=== PATIENT | female | born 1935 | race Caucasian/White ===

== ENCOUNTER 2019-02-03 09:07 | Inpatient (IN) | payer MEDICARE ==
[~2019-02-03] VITALS: Ht 157.5 cm; Wt 57.2 kg
[2019-02-03] VITALS (25 sets, daily range): BP systolic 78–225; BP diastolic 28–95
[~2019-02-03 09:07] MED LIST: ALBU18HF2 IH; AMLO10TA PO; ASPI-529 PO; CLOP75TA35 PO; LORA1TAB PO; MULT-342 PO; PREVCR VG
[2019-02-03] MEDS ORDERED: heparin 1,000unit/ml 10ml vial 10 ML ONE ×2 (09:25→19:07)
[2019-02-03] MEDS ORDERED: iohexol 350MG/ML 100ml bottle IV ONE ×4 (09:25→21:24)
[2019-02-03] MEDS ORDERED: iohexol 350 MG/ML 50ML vial IV ONE (09:25)
[2019-02-03] MEDS ORDERED: fentaNYL/PF 50MCG/1 ML 2ML syringe ONE ×2 (09:25→19:55)
[2019-02-03] MEDS ORDERED: midazolam 2 mg/2 ml injection ONE ×3 (09:25→19:55)
[2019-02-03] MEDS ORDERED: LIDOcaine 1% (10mg/ml)w/preservative injection 20ml MDV ONE ×2 (09:35→19:07)
[2019-02-03 09:47] LABS: BASOPHILS # (AUTO) 0.1 X10'3 (0-0.2); BASOPHILS % (AUTO) 1.2 % (0-1); EOSINOPHILS # (AUTO) 0.3 X10'3 (0-0.9); EOSINOPHILS % (AUTO) 5.3 % (0-6); HEMATOCRIT 43.2 % (35.0-45.0); HEMOGLOBIN 14.9 g/dl (12.0-16.0); LYMPHOCYTES % (AUTO) 14.7 % (21-51); MEAN CORPUSCULAR HEMOGLOBIN 31.5 PG (27.0-31.0); MEAN CORPUSCULAR HGB CONC 34.6 g/dL (33.0-36.5); MEAN CORPUSCULAR VOLUME 91.1 FL (78-98); MEAN PLATELET VOLUME 6.8 FL (7.4-10.4); MONOCYTES # (AUTO) 0.5 X10'3 (0-0.9); NEUTROPHILS # (AUTO) 4.7 X10'3 (1.8-7.7); NEUTROPHILS % (AUTO) 70.8 % (42-75); PLATELET COUNT 225 X10'3 (140-440); RED BLOOD COUNT 4.74 X10'6 (4.20-5.60); RED CELL DISTRIBUTION WIDTH 13.2 % (11.5-14.5); WHITE BLOOD COUNT 6.6 X10'3 (4.5-11.0)
[2019-02-03] MEDS ORDERED: LISI40TA4 PO (09:57)
[2019-02-03] MEDS ORDERED: LISI30TA4 PO (09:58)
[2019-02-03] MEDS ORDERED: KRIL1CAP PO (09:59)
[2019-02-03] MEDS ORDERED: LACT1CAP73 PO (10:00)
[2019-02-03] MEDS ORDERED: MAGN400C PO (10:02)
[2019-02-03] MEDS ORDERED: LORA0.5T PO (10:03)
[2019-02-03] MEDS ORDERED: CHOL50004 PO (10:07)
[2019-02-03 10:08] LABS: ANION GAP 8 (8-16); BLOOD UREA NITROGEN 31 MG/DL (7-18); BUN/CREATININE RATIO 24.6 (6.6-38.0); CHLORIDE 102 MMOL/L (99-107); CREATININE 1.26 MG/DL (0.40-0.90); GLUCOSE 90 MG/DL (70-104); MAGNESIUM 2.1 MG/DL (1.5-2.4); SODIUM 138 MMOL/L (135-145); TOTAL CARBON DIOXIDE 28.3 MMOL/L (24-32); eGFR 41 ML/MIN
[2019-02-03] MEDS ORDERED: METO25TA6 PO (10:27)
[2019-02-03] MEDS ORDERED: proCHLORperazine 10 MG/2 ml inj ONE ×2 (10:46→19:55)
[2019-02-03] MEDS ORDERED: nitroGLYCERIN-Tridil 50MG/D5W 250 ML IV ONE ×2 (11:29→21:31)
[2019-02-03] MEDS ORDERED: clopidogrel 300mg tablet ONE (11:39)
[2019-02-03] MEDS ORDERED: ondansetron/PF 4mg/2ml inj ONE ×2 (12:29→17:04)
[2019-02-03] MEDS ORDERED: atropine 0.1mg/ml 10ml syringe ONE (13:46)
[2019-02-03] MEDS: normal saline 1000ml 1,000 ML IV SCH ×2 (14:07→14:09)
[2019-02-03] MEDS ORDERED: normal saline 1000ml 1,000 ML IV ONE (14:10)
[2019-02-03] MEDS ORDERED: hydrocortisone sod succ/PF 100mg/2ml inj. IV ONE (15:10)
[2019-02-03] MEDS ORDERED: glycopyrrolate 0.2mg/ml inj IV ONE (15:50)
--- NOTE | 2019-02-03 17:00 | NUR ---
Pt arrived to unit via gurney. Received report from RN from Short Stay. Applied tele monitor (mobile unit) and obtained vital signs. NS running at 200 mL/hr until bolus is finished. Gave call light to pt and oriented pt to room. Pt is alert and oriented X 4 and denies pain in her right leg. At this time, I can not palpate or auscultate pedal or posterior tibial pulse. RN from short Stay stated that Dr. Maciel is aware. I called Dr. Maciel on his cell at , several times, however, no answer. I then notified Dr. Castro of these findings. Will continue to try and reach Dr. Maciel and monitor pt closely.
[2019-02-03] MEDS ORDERED: LORazepam 0.5 MG tablet PO PRN (17:30)
[2019-02-03] MEDS ORDERED: zolpidem 5mg tablet PO PRN (17:45)
[2019-02-03] MEDS ORDERED: non-formulary drug (Albuterol Sulfate (Ventolin Hfa) 2 PUFFS) IH SCH (18:00)
--- NOTE | 2019-02-03 18:30 | NUR ---
I have made several attempts to call Dr. Maciel at [phone], however, no response. I left one message asking Dr. Maicel to return my call, but no success. Dr. Castro at bedside now evaluating pt. New order for arterial ultrasound. Will continue to monitor.
--- NOTE | 2019-02-03 18:40 | NUR ---
Problems reprioritized. Patient report given, questions answered & plan of care reviewed with Romelia PADRON.
[2019-02-03] MEDS ORDERED: heparin 1,000 UNITS/NS 500ml 500 ML ONE ×2 (19:08→19:49)
--- NOTE | 2019-02-03 19:42 | NUR ---
Patient in room PCU 3026. I have received report from Hawa PADRON and Brett PADRON and had the opportunity to ask questions and assume patient care.
[2019-02-03] MEDS ORDERED: diphenhydrAMINE 50 mg/ml inj ONE (19:55)
[2019-02-03] MEDS ORDERED: metoprolol tartrate 25mg tablet PO SCH (20:00)
[2019-02-03] MEDS ORDERED: non-formulary drug (Cholecalciferol (Vitamin D3) 5,000 UNIT) PO SCH (20:00)
[2019-02-03] MEDS ORDERED: hydrocortisone sod succ/PF 100mg/2ml inj. ONE (20:49)
[2019-02-03] MEDS ORDERED: non-formulary drug (Lisinopril* 1 TAB) PO SCH (21:00)
[2019-02-03] MEDS ORDERED: lisinopril 20mg tablet PO SCH (21:00)
[2019-02-03] MEDS: albuterol 2.5 MG/3 ML nebule NEB SCH ×2 (21:14→23:07)
--- NOTE | 2019-02-03 23:15 | NUR ---
Patient's left leg mottled, pulses undetectable and patient in pain (10/10). Contacted data processing consultant echocardiography radiology technologist (Dr. Castro). Orders given for Percocet 5/325 and recommendation to get a hold of Dr. Maciel.
[2019-02-03] MEDS ORDERED: oxyCODONE/APAP 5-325mg tablet PO PRN (23:20)
--- NOTE | 2019-02-03 23:30 | NUR ---
Got a hold of Dr. Maciel, he came to the floor to check on patient. Removed femoral stop and checked for pulses. Order given for Morphine 2mg IV. aware of low blood pressure.
[2019-02-03] MEDS ORDERED: morphine 2 MG/ML inj. syringe IV PRN (23:40)
[2019-02-04] VITALS (28 sets, daily range): BP systolic 85–173; BP diastolic 19–65
--- NOTE | 2019-02-04 02:00 | NUR ---
While assessing patient's low BP and her left leg, she vomited bile. Patient would respond to shaking but could not focus or follow commands. Called rapid response. New orders placed for CBC and BMP.
[2019-02-04] MEDS ORDERED: naloxone 0.4 mg/ml inj ONE (02:47)
[2019-02-04 03:08] LABS: BASOPHILS # (AUTO) 0.1 X10'3 (0-0.2); BASOPHILS % (AUTO) 0.3 % (0-1); EOSINOPHILS % (AUTO) 0.1 % (0-6); LYMPHOCYTES # (AUTO) 1.6 X10'3 (1.1-4.8); LYMPHOCYTES % (AUTO) 8.2 % (21-51); MEAN CORPUSCULAR HGB CONC 33.6 g/dL (33.0-36.5); MEAN CORPUSCULAR VOLUME 92.1 FL (78-98); MEAN PLATELET VOLUME 7.1 FL (7.4-10.4); MONOCYTES # (AUTO) 1.1 X10'3 (0-0.9); MONOCYTES % (AUTO) 5.5 % (2-12); NEUTROPHILS % (AUTO) 85.9 % (42-75); PLATELET COUNT 194 X10'3 (140-440); RED BLOOD COUNT 1.98 X10'6 (4.20-5.60); RED CELL DISTRIBUTION WIDTH 13.1 % (11.5-14.5); WHITE BLOOD COUNT 19.8 X10'3 (4.5-11.0)
[2019-02-04 03:18] LABS: HEMATOCRIT 18.2 % (35.0-45.0); HEMOGLOBIN 6.1 g/dl (12.0-16.0)
--- NOTE | 2019-02-04 04:00 | NUR ---
RN Note -Received report from tele
--- NOTE | 2019-02-04 04:00 | NUR ---
Called back to PCU at [phone] to reassess patient after patient vomited large amt and had possible seizure; upon arrival pt still sleepy but would open eyes and follow simple commands; pt denies pain but abd tender when palpated; bladder scanned for <100cc; str cath done w/minimal output; at some point pt incontinent large amt of urine; at bedside to assess patient; SBP remains in 90s; HR 86, sats good on RA; repeat H/h critical, awaiting processing of packed cells; pt to be transferred to ICU 2044; pt transferred in bed at 0
--- NOTE | 2019-02-04 04:00 | NUR ---
Two RN skin check with Leslie Casas
[2019-02-04] MEDS ORDERED: NORepinephrine 8mg/ 250ml NS 250 ML IV SCH (04:10)
--- NOTE | 2019-02-04 05:00 | NUR ---
RN Note -MD Communication Dr. Maciel at bedside. Orders received for Levo to keep SBP above 110. Bumex to be given between units of blood. BiPAP as needed if pt experiences respiratory distress.
[2019-02-04 05:17] LABS: ANION GAP 7 (8-16); BLOOD UREA NITROGEN 34 MG/DL (7-18); BUN/CREATININE RATIO 24.8 (6.6-38.0); CALCIUM 7.1 MG/DL (8.5-10.1); CHLORIDE 112 MMOL/L (99-107); CREATININE 1.37 MG/DL (0.40-0.90); GLUCOSE 151 MG/DL (70-104); POTASSIUM 4.5 MMOL/L (3.5-5.1); SODIUM 141 MMOL/L (135-145); TOTAL CARBON DIOXIDE 21.7 MMOL/L (24-32); eGFR 37 ML/MIN
--- NOTE | 2019-02-04 05:30 | NUR ---
Pt has episodes of tachypnea and pursed lip breathing and difficulty speaking. Appears to be anxiety related. Pt responds to reassurance and encouragement to breathe deep. Blood pressure is responding well to transfusion.
[2019-02-04] MEDS: normal saline 1000ml 1,000 ML IV SCH ×5 (05:35→21:34)
[2019-02-04] MEDS ORDERED: bumetanide 0.25mg/ml 4ml vial IV SCH (06:30)
--- NOTE | 2019-02-04 06:30 | NUR ---
Patient in room ICU 2044. I have received report from advertising traffic manager nurse Mac RN and had the opportunity to ask questions and assume patient care.
[2019-02-04] MEDS ORDERED: lisinopril 10 MG tablet PO SCH (08:00)
[2019-02-04] MEDS ORDERED: non-formulary drug (Lisinopril 1 TAB) PO SCH (08:00)
[2019-02-04] MEDS ORDERED: [UNRECOGNIZED DRUG - OTHER] PO SCH (08:00)
[2019-02-04] MEDS ORDERED: ASPIRIN 81 MG PO SCH (08:00)
[2019-02-04] MEDS ORDERED: non-formulary drug (Krill/Om3/Dha/Epa/Om6/Lip/Astx (Krill Oil 1,000 Mg Softgel) 1 EACH) PO SCH (08:00)
[2019-02-04] MEDS: estrogens, conjug. vaginal cream 45gm tube VG SCH (08:00)
[2019-02-04] MEDS ORDERED: non-formulary drug (Magnesium Oxide (Magnesium) 1 CAP) PO SCH (08:00)
--- NOTE | 2019-02-04 08:00 | NUR ---
feet cold, unable to find doppler pulses, warm blankets applied, reassessed and doppler pulses found as charted.
[2019-02-04] MEDS: albuterol 2.5 MG/3 ML nebule NEB SCH ×2 (08:20→11:05)
[2019-02-04] MEDS: aspirin 81mg tab.chew PO SCH (09:56)
[2019-02-04] MEDS: lactobacillus rhamnosus 10,000 MMU CELLS/CAPSULE PO SCH (09:56)
[2019-02-04] MEDS: clopidogrel 75mg tablet PO SCH (09:56)
[2019-02-04] MEDS: vitamin D (cholecalciferol) 1,000 unit tablet PO SCH ×2 (09:56→10:05)
[2019-02-04] MEDS: magnesium oxide 400mg tablet PO SCH (09:56)
--- NOTE | 2019-02-04 10:30 | NUR ---
Dr Maciel here at bedside, updated on patients status, new orders received.
[2019-02-04] MEDS ORDERED: hydrALAZINE 20mg/ml inj. IV PRN (11:45)
[2019-02-04] MEDS: acetaminophen 325mg tablet PO PRN (11:52)
[2019-02-04 13:14] LABS: BASOPHILS % (AUTO) 0.1 % (0-1); EOSINOPHILS % (AUTO) 0 % (0-6); HEMATOCRIT 31.1 % (35.0-45.0); HEMOGLOBIN 10.7 g/dl (12.0-16.0); LYMPHOCYTES # (AUTO) 1.1 X10'3 (1.1-4.8); LYMPHOCYTES % (AUTO) 4.6 % (21-51); MEAN CORPUSCULAR HEMOGLOBIN 28.2 PG (27.0-31.0); MEAN CORPUSCULAR HGB CONC 34.4 g/dL (33.0-36.5); MEAN CORPUSCULAR VOLUME 82.1 FL (78-98); MEAN PLATELET VOLUME 7.4 FL (7.4-10.4); MONOCYTES # (AUTO) 1.7 X10'3 (0-0.9); MONOCYTES % (AUTO) 6.8 % (2-12); NEUTROPHILS # (AUTO) 21.6 X10'3 (1.8-7.7); NEUTROPHILS % (AUTO) 88.5 % (42-75); PLATELET COUNT 132 X10'3 (140-440); RED BLOOD COUNT 3.79 X10'6 (4.20-5.60); RED CELL DISTRIBUTION WIDTH 19.4 % (11.5-14.5); WHITE BLOOD COUNT 24.5 X10'3 (4.5-11.0)
[2019-02-04 14:29] LABS: TOTAL CELLS COUNTED 100
[2019-02-04 14:31] LABS: ANISOCYTOSIS 2+; ELLIPTOCYTES FEW; PLATELET ESTIMATE DECREASED; POLYCHROMASIA FEW
[2019-02-04 14:32] LABS: ACANTHOCYTES FEW
[2019-02-04] MEDS: albuterol 2.5 MG/3 ML nebule NEB PRN (18:51)
[2019-02-05] VITALS (14 sets, daily range): BP systolic 116–212; BP diastolic 21–76
[2019-02-05] MEDS: acetaminophen 325mg tablet PO PRN (03:06)
[2019-02-05 03:12] LABS: BASOPHILS % (AUTO) 0.3 % (0-1); EOSINOPHILS # (AUTO) 0.1 X10'3 (0-0.9); EOSINOPHILS % (AUTO) 0.4 % (0-6); HEMATOCRIT 26.7 % (35.0-45.0); HEMOGLOBIN 9.2 g/dl (12.0-16.0); LYMPHOCYTES # (AUTO) 1.3 X10'3 (1.1-4.8); LYMPHOCYTES % (AUTO) 8.2 % (21-51); MEAN CORPUSCULAR HEMOGLOBIN 28.3 PG (27.0-31.0); MEAN CORPUSCULAR HGB CONC 34.5 g/dL (33.0-36.5); MEAN CORPUSCULAR VOLUME 82.1 FL (78-98); MEAN PLATELET VOLUME 7.3 FL (7.4-10.4); MONOCYTES # (AUTO) 1.4 X10'3 (0-0.9); MONOCYTES % (AUTO) 9.3 % (2-12); NEUTROPHILS # (AUTO) 12.8 X10'3 (1.8-7.7); NEUTROPHILS % (AUTO) 81.8 % (42-75); PLATELET COUNT 103 X10'3 (140-440); RED BLOOD COUNT 3.26 X10'6 (4.20-5.60); WHITE BLOOD COUNT 15.6 X10'3 (4.5-11.0)
[2019-02-05 03:19] LABS: ALANINE AMINOTRANSFERASE 28 U/L (12-78); ALBUMIN 2.4 G/DL (3.4-5.0); ALKALINE PHOSPHATASE 61 IU/L (46-116); ANION GAP 8 (8-16); ASPARTATE AMINO TRANSFERASE 33 U/L (10-37); BILIRUBIN,TOTAL 0.3 MG/DL (0.1-1.0); BLOOD UREA NITROGEN 37 MG/DL (7-18); CALCIUM 7.4 MG/DL (8.5-10.1); CHLORIDE 107 MMOL/L (99-107); CREATININE 1.48 MG/DL (0.40-0.90); GLUCOSE 123 MG/DL (70-104); MAGNESIUM 1.8 MG/DL (1.5-2.4); POTASSIUM 3.3 MMOL/L (3.5-5.1); SODIUM 137 MMOL/L (135-145); TOTAL PROTEIN 4.8 G/DL (6.4-8.2); eGFR 34 ML/MIN
--- NOTE | 2019-02-05 06:00 | NUR ---
RN Note -MD Communication Called Dr. Maciel regarding pt's blood pressure rising. Received order to restart home Lisinopril and Metoprolol.
[2019-02-05] MEDS ORDERED: potassium Cl 20 mEq SR tablet PO PRN (06:20)
--- NOTE | 2019-02-05 06:30 | NUR ---
Patient in room ICU 2044. I have received report from shift engineer and had the opportunity to ask questions and assume patient care.
[2019-02-05] MEDS: albuterol 2.5 MG/3 ML nebule NEB PRN (07:17)
[2019-02-05] MEDS ORDERED: lisinopril 10 MG tablet PO SCH (08:00)
[2019-02-05] MEDS ORDERED: metoprolol tartrate 50mg tablet PO SCH (08:00)
[2019-02-05] MEDS: estrogens, conjug. vaginal cream 45gm tube VG SCH (08:00)
[2019-02-05] MEDS ORDERED: K and/or MAG REPLACEMENT MC SCH (08:00)
[2019-02-05] MEDS: clopidogrel 75mg tablet PO SCH (08:32)
[2019-02-05] MEDS: magnesium oxide 400mg tablet PO SCH (08:32)
[2019-02-05] MEDS: lactobacillus rhamnosus 10,000 MMU CELLS/CAPSULE PO SCH (08:32)
[2019-02-05] MEDS: aspirin 81mg tab.chew PO SCH (08:37)
[2019-02-05] MEDS: vitamin D (cholecalciferol) 1,000 unit tablet PO SCH ×2 (08:37→08:41)
[2019-02-05] MEDS: potassium Cl 20 mEq SR tablet PO PRN ×2 (08:37→12:11)
[2019-02-05] MEDS ORDERED: bumetanide 0.25mg/ml 4ml vial IV ONE (10:05)
[2019-02-05] MEDS ORDERED: HYDROchlorothiazide 12.5mg capsule PO SCH (10:05)
[2019-02-05] MEDS ORDERED: cloNIDine 0.1 mg tablet PO ONE (10:05)
--- NOTE | 2019-02-05 11:00 | NUR ---
ambulated 200 feet with out problems, slightly SOB noted with walking
--- NOTE | 2019-02-05 12:00 | NUR ---
Dr Maciel at bedside updated on patients labs, and status, orders to dc home.
--- NOTE | 2019-02-05 14:00 | NUR ---
Picc line dc without problems, pressure held til hemostasis achieved, drsg applied, discharge instruction reviewed, questions answered, discharged to car via wheelchair, to 's care. all valuables in patients possession
[2019-02-05] MEDS ORDERED: lisinopril 20mg tablet PO SCH (21:00)
== END 2019-02-05 15:21 | disposition home or self-care (01) | DRG 254 ==
LOC: SSTAY O 09:07 → PCU 3S 16:34 → SSTAY O 02-04 04:20 → ICU 2S 02-04 04:21 → OBSVTOIN 02-04 04:21
PROVIDERS: ADMIT Internal Medicine Cardiovascular Disease; ATTEND Internal Medicine Cardiovascular Disease
PROC: 047934Z Dilation of Right Renal Artery with Drug-eluting Intraluminal Device, Percutaneous Approach (ICD-10-PCS; principal; 2019-02-03)
PROC: B407YZZ Plain Radiography of Left Renal Artery using Other Contrast (ICD-10-PCS; 2019-02-03)
DX: I15.0 Renovascular hypertension (principal); I70.1 Atherosclerosis of renal artery; I10 Essential (primary) hypertension; E78.00 Pure hypercholesterolemia, unspecified; I73.9 Peripheral vascular disease, unspecified; F41.9 Anxiety disorder, unspecified; Z79.02 Long term (current) use of antithrombotics/antiplatelets; Z79.82 Long term (current) use of aspirin; Z79.899 Other long term (current) drug therapy; Z85.118 Personal history of other malignant neoplasm of bronchus and lung
CPT/HCPCS: 36252; 36415; 36569; 37221; 37236; 75716; 76937; 80048; 80053; 82948; 83735; 85025; 85610; 86885; 86900; 86901; 86920; 87070; 93005; 93926; 94640; 94760; 99152; 99153; A4620; A6257; C1725; C1760; C1769; C1876; C1887; C1894; G0378; J0461; J0780; J1200; J1644; J1720; J2001; J2250; J2270; J2310; J2405; J3010; J3490; J7030; P9016; Q9967

== ENCOUNTER 2020-04-22 09:07 | Day surgery (SDC) | payer MEDICARE ==
[~2020-04-22] VITALS: Ht 157.5 cm; Wt 58.3 kg
[~2020-04-22 09:07] MED LIST changes: -AMLO10TA PO; +CHOL50004 PO; -CLOP75TA35 PO; +KRIL1CAP PO; +LACT1CAP73 PO; +LISI30TA4 PO; +LISI40TA4 PO; +LORA0.5T PO; -LORA1TAB PO; +MAGN400C PO; +METO25TA6 PO; -MULT-342 PO
[2020-04-22 09:30] VITALS: BP 184/60
[2020-04-22] MEDS ORDERED: normal saline 1000ml 1,000 ML IV SCH ×2 (09:45→12:05)
[2020-04-22] MEDS ORDERED: vancomycin/NS 1 GM ADD-VANTAGE 250 ML X 1 DOSE IV ONE (09:45)
[2020-04-22] MEDS ORDERED: ceFAZolin 2gm in dextrose, iso 50 ML IV ONE (09:55)
[2020-04-22] MEDS ORDERED: midazolam 2 mg/2 ml injection ONE ×3 (10:02→11:11)
[2020-04-22] MEDS ORDERED: fentaNYL/PF 50MCG/1 ML 2ML syringe ONE (10:02)
[2020-04-22] MEDS ORDERED: LIDOcaine 1% W/epiNEPHrine 1:100,000 20ml vial ONE (10:03)
[2020-04-22] MEDS ORDERED: vancomycin 1,000mg inj ONE (10:03)
[2020-04-22 10:21] LABS: BASOPHILS # (AUTO) 0.1 X10'3 (0-0.2); BASOPHILS % (AUTO) 1.2 % (0-1); EOSINOPHILS # (AUTO) 0.4 X10'3 (0-0.9); EOSINOPHILS % (AUTO) 5.7 % (0-6); HEMATOCRIT 40.5 % (35.0-45.0); HEMOGLOBIN 13.7 g/dl (12.0-16.0); LYMPHOCYTES # (AUTO) 1.1 X10'3 (1.1-4.8); LYMPHOCYTES % (AUTO) 14.4 % (21-51); MEAN CORPUSCULAR HEMOGLOBIN 30.8 PG (27.0-31.0); MEAN CORPUSCULAR HGB CONC 33.8 g/dL (33.0-36.5); MEAN CORPUSCULAR VOLUME 91.1 FL (78-98); MONOCYTES # (AUTO) 0.6 X10'3 (0-0.9); MONOCYTES % (AUTO) 8.2 % (2-12); NEUTROPHILS # (AUTO) 5.2 X10'3 (1.8-7.7); NEUTROPHILS % (AUTO) 70.5 % (42-75); PLATELET COUNT 194 X10'3 (140-440); RED BLOOD COUNT 4.45 X10'6 (4.20-5.60); WHITE BLOOD COUNT 7.3 X10'3 (4.5-11.0)
[2020-04-22 10:32] LABS: ALBUMIN 3.6 G/DL (3.4-5.0); ANION GAP 12 (8-16); BLOOD UREA NITROGEN 31 MG/DL (7-18); BUN/CREATININE RATIO 27.9 (6.6-38.0); CALCIUM 9.6 MG/DL (8.5-10.1); CHLORIDE 104 MMOL/L (99-107); CREATININE 1.11 MG/DL (0.40-0.90); GLUCOSE 98 MG/DL (70-104); MAGNESIUM 2.3 MG/DL (1.5-2.4); POTASSIUM 3.7 MMOL/L (3.5-5.1); SODIUM 142 MMOL/L (135-145); TOTAL CARBON DIOXIDE 26.1 MMOL/L (24-32); eGFR 47 ML/MIN
[2020-04-22] MEDS ORDERED: diphenhydrAMINE 50 mg/ml inj ONE (10:38)
[2020-04-22] MEDS ORDERED: HYDR12.55 PO (10:52)
[2020-04-22] MEDS ORDERED: RED600TA PO (10:52)
[2020-04-22] MEDS ORDERED: CARV6.253 PO (10:52)
[2020-04-22] MEDS ORDERED: NIFE90TA44 PO (10:52)
[2020-04-22 11:52] VITALS: BP 100/80
[2020-04-22 12:06] VITALS: BP 108/59
[2020-04-22 12:35] VITALS: BP 125/77
[2020-04-22 12:51] VITALS: BP 145/67
--- NOTE | 2020-04-22 16:32 | NUR ---
Patient discharged with instructions and medtronic device. Reviewed discharge instructions and questions answered. Picked up by
== END 2020-04-22 13:35 | disposition home or self-care (01) ==
LOC: SSTAY O 09:07
PROVIDERS: ATTEND Internal Medicine Cardiovascular Disease
DX: I49.5 Sick sinus syndrome (principal); I10 Essential (primary) hypertension; Z85.118 Personal history of other malignant neoplasm of bronchus and lung; Z79.899 Other long term (current) drug therapy; Z79.82 Long term (current) use of aspirin; F41.8 Other specified anxiety disorders; E78.00 Pure hypercholesterolemia, unspecified; Z98.890 Other specified postprocedural states; Z87.891 Personal history of nicotine dependence; Z88.1 Allergy status to other antibiotic agents; Z88.5 Allergy status to narcotic agent; Z88.8 Allergy status to other drugs, medicaments and biological substances; R00.2 Palpitations; I47.1 Supraventricular tachycardia
CPT/HCPCS: 33208; 36415; 71045; 80048; 83735; 85025; 85610; 93005; 99152; 99153; C1785; C1894; C1898; J1200; J2250; J3010; J3370; A4565; A6258

== ENCOUNTER 2020-08-26 10:39 | Outpatient (CLI) | payer MEDICARE ==
[~2020-08-26 10:39] MED LIST changes: +CARV6.253 PO; +HYDR12.55 PO; -LISI30TA4 PO; -LISI40TA4 PO; -METO25TA6 PO; +NIFE90TA44 PO; +RED600TA PO
[2020-08-26] MEDS ORDERED: LIDOcaine 2% 5ml jelly ONE (11:29)
== END 2020-08-26 23:59 | disposition home or self-care (01) ==
LOC: WOUND CARE 10:39 → EDSTATUS 10:40 → WOUND CARE 23:59
PROVIDERS: ATTEND Nurse Practitioner Family
DX: T81.89XA Other complications of procedures, not elsewhere classified, initial encounter (principal); L98.492 Non-pressure chronic ulcer of skin of other sites with fat layer exposed; E78.5 Hyperlipidemia, unspecified; I10 Essential (primary) hypertension; E78.00 Pure hypercholesterolemia, unspecified; I49.5 Sick sinus syndrome; H35.30 Unspecified macular degeneration; I47.1 Supraventricular tachycardia; F41.8 Other specified anxiety disorders; Z85.118 Personal history of other malignant neoplasm of bronchus and lung; Z90.710 Acquired absence of both cervix and uterus; Z79.899 Other long term (current) drug therapy; Z79.82 Long term (current) use of aspirin; Z98.890 Other specified postprocedural states; Z87.891 Personal history of nicotine dependence; Z98.49 Cataract extraction status, unspecified eye; Y92.238 Other place in hospital as the place of occurrence of the external cause; Y83.8 Other surgical procedures as the cause of abnormal reaction of the patient, or of later complication, without mention of misadventure at the time of the procedure
CPT/HCPCS: 97597

== ENCOUNTER 2021-12-25 15:11 | Outpatient (CLI) | payer MEDICARE ==
[2021-12-25 15:53] LABS: ALBUMIN 3.3 G/DL (3.4-5.0); ANION GAP 11 (8-16); BLOOD UREA NITROGEN 31 MG/DL (7-18); BUN/CREATININE RATIO 22.6 (6.6-38.0); CALCIUM 9.2 MG/DL (8.5-10.1); CHLORIDE 100 MMOL/L (99-107); CREATININE 1.37 MG/DL (0.40-0.90); GLUCOSE 116 MG/DL (70-104); SODIUM 136 MMOL/L (135-145); TOTAL CARBON DIOXIDE 25.4 MMOL/L (24-32); eGFR 37 ML/MIN
[2021-12-25 15:55] LABS: POTASSIUM 3.9 MMOL/L (3.5-5.1)
== END 2021-12-25 23:59 | disposition home or self-care (01) ==
LOC: LAB 15:11
PROVIDERS: ATTEND Thoracic Surgery (Cardiothoracic Vascular Surgery)
DX: I65.29 Occlusion and stenosis of unspecified carotid artery (principal)
CPT/HCPCS: 36415; 80048

== ENCOUNTER 2022-08-03 06:48 | Emergency (ER) | payer MEDICARE ==
[~2022-08-03] VITALS: Ht 154.9 cm; Wt 58.0 kg
[2022-08-03 07:17] VITALS: BP 189/63
[2022-08-03 07:48] LABS: BASOPHILS # (AUTO) 0.1 X10'3 (0-0.2); BASOPHILS % (AUTO) 0.7 % (0-1); EOSINOPHILS # (AUTO) 0.4 X10'3 (0-0.9); EOSINOPHILS % (AUTO) 3.6 % (0-6); HEMATOCRIT 39.5 % (35.0-45.0); LYMPHOCYTES # (AUTO) 0.8 X10'3 (1.1-4.8); LYMPHOCYTES % (AUTO) 7.7 % (21-51); MEAN CORPUSCULAR HEMOGLOBIN 29.7 PG (27.0-31.0); MEAN CORPUSCULAR HGB CONC 32.8 g/dL (33.0-36.5); MEAN CORPUSCULAR VOLUME 90.5 FL (78-98); MEAN PLATELET VOLUME 6.9 FL (7.4-10.4); MONOCYTES # (AUTO) 0.9 X10'3 (0-0.9); NEUTROPHILS # (AUTO) 8.8 X10'3 (1.8-7.7); PLATELET COUNT 208 X10'3 (140-440); RED BLOOD COUNT 4.37 X10'6 (4.20-5.60); RED CELL DISTRIBUTION WIDTH 13.8 % (11.5-14.5)
[2022-08-03 08:02] LABS: ALANINE AMINOTRANSFERASE 44 U/L (12-78); ALBUMIN 3.1 G/DL (3.4-5.0); ALBUMIN/GLOBULIN RATIO 0.8 (1.1-1.5); ALKALINE PHOSPHATASE 188 IU/L (46-116); ANION GAP 6 (8-16); ASPARTATE AMINO TRANSFERASE 23 U/L (10-37); BILIRUBIN,TOTAL 0.4 MG/DL (0.1-1.0); BLOOD UREA NITROGEN 27 MG/DL (7-18); BUN/CREATININE RATIO 22.9 (6.6-38.0); CALCIUM 9.7 MG/DL (8.5-10.1); CHLORIDE 103 MMOL/L (99-107); CREATININE 1.18 MG/DL (0.40-0.90); GLUCOSE 116 MG/DL (70-104); POTASSIUM 3.9 MMOL/L (3.5-5.1); SODIUM 139 MMOL/L (135-145); TOTAL PROTEIN 6.9 G/DL (6.4-8.2); eGFR 43 ML/MIN
[2022-08-03 10:54] LABS: D-DIMER 1.31 MG/L FEU (0-0.50)
[2022-08-03] MEDS ORDERED: iohexol 350MG/ML 100ml bottle IV ONE (12:57)
== END 2022-08-03 10:00 | disposition home or self-care (01) ==
LOC: ER 06:49
DX: R07.9 Chest pain, unspecified (principal); R00.0 Tachycardia, unspecified; N64.4 Mastodynia; I11.9 Hypertensive heart disease without heart failure; E03.9 Hypothyroidism, unspecified; J44.9 Chronic obstructive pulmonary disease, unspecified; F41.9 Anxiety disorder, unspecified; Z88.0 Allergy status to penicillin; Z88.8 Allergy status to other drugs, medicaments and biological substances; Z88.1 Allergy status to other antibiotic agents; Z79.899 Other long term (current) drug therapy; Z79.1 Long term (current) use of non-steroidal anti-inflammatories (NSAID); Z79.82 Long term (current) use of aspirin
CPT/HCPCS: 36415; 71045; 80053; 83880; 84484; 85025; 85379; 93005; 99285; J3490; Q9967

== ENCOUNTER 2022-10-12 06:32 | Day surgery (SDC) | payer MEDICARE ==
[2022-10-12] VITALS (11 sets, daily range): BP systolic 91–145; BP diastolic 47–69
[~2022-10-12] VITALS: Ht 157.5 cm; Wt 57.4 kg
[~2022-10-12 06:32] MED LIST changes: -ALBU18HF2 IH; +ALBU18HF2 INH; +AREDS PO; -ASPI-529 PO; +ASPI-611 PO; -CARV6.253 PO; +CARV6.256 PO; +CHOL100062 PO; -CHOL50004 PO; +CLON0.1T2 PO; +CLOP75TA34 PO; +EVOL140P3 SQ; +EZET10TA48 PO; +FLEC50TA PO; +FURO-150 PO; -HYDR12.55 PO; -KRIL1CAP PO; -LACT1CAP73 PO; +LORA-268 PO; -LORA0.5T PO; +LOSA50TA64 PO; -MAGN400C PO; -NIFE90TA44 PO; -PREVCR VG; -RED600TA PO
[2022-10-12] MEDS ORDERED: LORazepam 0.5 MG tablet PO PRN (07:00)
[2022-10-12] MEDS ORDERED: diphenhydrAMINE 25mg capsule PO PRN (07:00)
[2022-10-12 07:52] LABS: BASOPHILS # (AUTO) 0.1 X10'3 (0-0.2); BASOPHILS % (AUTO) 0.4 % (0-1); EOSINOPHILS # (AUTO) 0.3 X10'3 (0-0.9); EOSINOPHILS % (AUTO) 2.1 % (0-6); HEMATOCRIT 36.3 % (35.0-45.0); HEMOGLOBIN 12.2 g/dl (12.0-16.0); LYMPHOCYTES % (AUTO) 7.6 % (21-51); MEAN CORPUSCULAR HEMOGLOBIN 29.9 PG (27.0-31.0); MEAN CORPUSCULAR HGB CONC 33.6 g/dL (33.0-36.5); MEAN CORPUSCULAR VOLUME 89.1 FL (78-98); MEAN PLATELET VOLUME 7.1 FL (7.4-10.4); MONOCYTES # (AUTO) 1.1 X10'3 (0-0.9); MONOCYTES % (AUTO) 8.2 % (2-12); NEUTROPHILS # (AUTO) 11.1 X10'3 (1.8-7.7); NEUTROPHILS % (AUTO) 81.7 % (42-75); PLATELET COUNT 176 X10'3 (140-440); RED BLOOD COUNT 4.08 X10'6 (4.20-5.60); RED CELL DISTRIBUTION WIDTH 14.1 % (11.5-14.5); WHITE BLOOD COUNT 13.6 X10'3 (4.5-11.0)
[2022-10-12 08:15] LABS: ANION GAP 7 (8-16); BLOOD UREA NITROGEN 27 MG/DL (7-18); BUN/CREATININE RATIO 20.8 (6.6-38.0); CALCIUM 8.8 MG/DL (8.5-10.1); CHLORIDE 98 MMOL/L (99-107); GLUCOSE 97 MG/DL (70-104); POTASSIUM 3.5 MMOL/L (3.5-5.1); SODIUM 131 MMOL/L (135-145); eGFR 39 ML/MIN
[2022-10-12] MEDS: normal saline 1,000 ML IV SCH ×2 (08:25→12:54)
[2022-10-12] MEDS ORDERED: heparin 1,000unit/ml 10ml vial 10 ML ONE (08:48)
[2022-10-12] MEDS ORDERED: fentaNYL/PF 50MCG/1 ML 2ML syringe ONE (08:48)
[2022-10-12] MEDS ORDERED: iohexol 350MG/ML 100ml bottle IV ONE ×2 (08:48→10:40)
[2022-10-12] MEDS ORDERED: LIDOcaine 1% 30ml preserv. free vial ONE (08:48)
[2022-10-12] MEDS ORDERED: midazolam 1 mg/ML 2ml injection ONE ×2 (08:48→10:54)
[2022-10-12] MEDS ORDERED: nitroGLYCERIN-Tridil 50MG/D5W 250 ML IV ONE (11:08)
[2022-10-12] MEDS ORDERED: heparin 1,000 UNITS/NS 500ml 500 ML ONE (11:21)
[2022-10-12] MEDS ORDERED: enalaprilat dihydrate 2.5mg/2ml vial IV ONE (11:40)
[2022-10-12] MEDS ORDERED: HYDROcodone/acetaminophen 10/325mg tab PO PRN (12:10)
[2022-10-12] MEDS ORDERED: proCHLORperazine 10 MG/2 ml inj IV PRN (12:10)
[2022-10-12] MEDS ORDERED: HYDROcodone/acetaminophen 5mg/325mg tablet PO PRN (12:10)
[2022-10-12] MEDS ORDERED: ondansetron/PF 4mg/2ml inj IV PRN (12:10)
[2022-10-12] MEDS ORDERED: normal saline 1000ml 1,000 ML IV SCH (12:10)
[2022-10-12] MEDS ORDERED: levoFLOXACIN-Levaquin 500mg/D5 100 ML IV ONE (12:15)
[2022-10-12] MEDS ORDERED: furosemide 40mg/4ml inj IV ONE (12:25)
--- NOTE | 2022-10-12 14:15 | NUR ---
Pt with small hematoma to left groin. Pressured applied, Dr. Maciel at bedside.
--- NOTE | 2022-10-12 16:00 | NUR ---
Urine output more than 800cc after Lasix.
--- NOTE | 2022-10-12 16:30 | NUR ---
(R) groin site remains stable, small hematoma with bruising at this time. Pt and both verbalized understanding of DC instructions. Immobilizer sent home with patient. Pt states she feels weaker than normal , Vital signs remain normal. Pt dc'd via wc with all belongings.
== END 2022-10-12 17:00 | disposition home or self-care (01) ==
LOC: SSTAY O 06:32
PROVIDERS: ATTEND Internal Medicine Cardiovascular Disease
DX: I70.213 Atherosclerosis of native arteries of extremities with intermittent claudication, bilateral legs (principal); I10 Essential (primary) hypertension; E78.00 Pure hypercholesterolemia, unspecified; F41.9 Anxiety disorder, unspecified; J44.9 Chronic obstructive pulmonary disease, unspecified; Z85.118 Personal history of other malignant neoplasm of bronchus and lung; Z88.1 Allergy status to other antibiotic agents; Z88.5 Allergy status to narcotic agent; Z88.8 Allergy status to other drugs, medicaments and biological substances; Z91.09 Other allergy status, other than to drugs and biological substances; Z95.0 Presence of cardiac pacemaker; Z79.899 Other long term (current) drug therapy; Z98.890 Other specified postprocedural states; Z87.891 Personal history of nicotine dependence; Z82.49 Family history of ischemic heart disease and other diseases of the circulatory system; Z81.8 Family history of other mental and behavioral disorders
CPT/HCPCS: 36415; 37226; 75710; 80048; 83735; 85025; 85610; 93005; 99152; 99153; C1725; C1760; C1769; C1876; C1894; C2623; J1644; J1940; J1956; J2250; J3010; J3490; J7030; Q0163; Q9967; A6258

== ENCOUNTER 2023-01-11 17:31 | Inpatient (IN) | payer MEDICARE ==
[~2023-01-11] VITALS: Ht 154.9 cm; Wt 63.6 kg
[~2023-01-11 17:31] MED LIST changes: -ASPI-611 PO; -CLON0.1T2 PO; -FURO-150 PO
[2023-01-11] MEDS ORDERED: iohexol 350MG/ML 100ml bottle IV ONE ×3 (17:34→18:20)
[2023-01-11] MEDS ORDERED: iohexol 350 MG/ML 50ML vial IV ONE (17:34)
[2023-01-11] MEDS ORDERED: LIDOcaine 1% 30ml preserv. free vial ONE (17:34)
[2023-01-11] MEDS ORDERED: heparin 1,000unit/ml 10ml vial 0 ML ONE (17:34)
[2023-01-11] MEDS ORDERED: midazolam 1 mg/ML 2ml injection ONE (17:34)
[2023-01-11] MEDS ORDERED: fentaNYL/PF 50MCG/1 ML 2ML syringe ONE (17:34)
[2023-01-11] MEDS ORDERED: methylPREDNISolone sod succ 125mg/2ml vial IV ONE (17:55)
[2023-01-11] MEDS ORDERED: albuterol 2.5 MG/3 ML nebule NEB ONE (17:55)
[2023-01-11 18:17] LABS: BASOPHILS # (AUTO) 0.2 X10'3 (0-0.2); BASOPHILS % (AUTO) 1.2 % (0-1); EOSINOPHILS # (AUTO) 0.5 X10'3 (0-0.9); EOSINOPHILS % (AUTO) 3.7 % (0-6); HEMOGLOBIN 12.2 g/dl (12.0-16.0); LYMPHOCYTES # (AUTO) 1.3 X10'3 (1.1-4.8); LYMPHOCYTES % (AUTO) 10.2 % (21-51); MEAN CORPUSCULAR HEMOGLOBIN 29.7 PG (27.0-31.0); MEAN CORPUSCULAR HGB CONC 32.9 g/dL (33.0-36.5); MEAN CORPUSCULAR VOLUME 90.3 FL (78-98); MEAN PLATELET VOLUME 7.5 FL (7.4-10.4); MONOCYTES # (AUTO) 1.2 X10'3 (0-0.9); MONOCYTES % (AUTO) 9.7 % (2-12); NEUTROPHILS # (AUTO) 9.4 X10'3 (1.8-7.7); NEUTROPHILS % (AUTO) 75.2 % (42-75); PLATELET COUNT 271 X10'3 (140-440); RED CELL DISTRIBUTION WIDTH 16.2 % (11.5-14.5); WHITE BLOOD COUNT 12.4 X10'3 (4.5-11.0)
[2023-01-11 18:19] LABS: APTT 29 SECONDS (22-32); D-DIMER 1.38 MG/L FEU (0-0.50)
[2023-01-11 18:20] LABS: ANION GAP 8 (8-16); BLOOD UREA NITROGEN 33 MG/DL (7-18); CHLORIDE 105 MMOL/L (99-107); GLUCOSE 135 MG/DL (70-104); POTASSIUM 4.2 MMOL/L (3.5-5.1); SODIUM 140 MMOL/L (135-145)
[2023-01-11 18:21] LABS: ALANINE AMINOTRANSFERASE 23 U/L (12-78); ALBUMIN 3.4 G/DL (3.4-5.0); ALKALINE PHOSPHATASE 158 IU/L (46-116); ASPARTATE AMINO TRANSFERASE 29 U/L (10-37); BILIRUBIN,TOTAL 0.3 MG/DL (0.1-1.0); BUN/CREATININE RATIO 23.7 (10.0-20.0); CALCIUM 8.9 MG/DL (8.5-10.1); CREATININE 1.39 MG/DL (0.40-0.90); TOTAL PROTEIN 6.8 G/DL (6.4-8.2); eGFR 36 ML/MIN
--- NOTE | 2023-01-11 19:43 | NUR ---
1845 REC'D PT IN P[OC IN NAD ON BIPAP FOR C/O RESP DISTRESS X2 DAYS WORSENING, ON ALL MONITORS, DENIES PAIN 20GA L HAND WITH HUSB AT BS, A&O, DENIES PAIN AT THIS TIME AUSCULTATED BREATH SOUNDS CRACKLES THROUGHOUT WITH EXP WHEEZES DENIES COUGH
--- NOTE | 2023-01-11 20:06 | NUR ---
spoke with pt r/t cta. pt refused cta r/t poor kidney function. md graham
[2023-01-11] MEDS ORDERED: normal saline 1000ml 1,000 ML IV ONE (20:55)
[2023-01-11] MEDS ORDERED: ondansetron/PF 4mg/2ml inj IV ONE (20:55)
--- NOTE | 2023-01-11 21:19 | NUR ---
2114 PT REQUESTING BIPAP TO BE REMOVED, STILL FEELS SOB BUT WANTED A BREAK. PLACED ON NC 2L 2124 PT STATES FEELS SOB AND REQUESTING TO BE PLACED BACK ON BIPAP, RT PAGED FOR CONFIRMED PLACEMENT
[2023-01-11] MEDS ORDERED: cloNIDine 0.1 mg tablet PO ONE (21:35)
[2023-01-11] MEDS ORDERED: furosemide 10 MG/1 ML 10ml inj IV ONE (21:35)
--- NOTE | 2023-01-11 22:44 | NUR ---
2119 DR. GUTIERREZ AWARE OF PT BP GRADUALLY RISING AND NOW AT 204/134. REC'D VOV FOR MEDICATION 2219 PT REPOSITIONED FOR COMFORT, GOWNED AND PURE WICK PLACED FOR PT COMFORT; UNABLE TO TOLERATE BSC NOR BEDPAN, AND REQUESTED KWAN CATH
[2023-01-11] MEDS ORDERED: ezetimibe 10mg tablet PO ONE (23:15)
[2023-01-11] MEDS ORDERED: carvedilol 6.25mg tablet PO ONE (23:15)
[2023-01-11] MEDS ORDERED: flecainide 50mg tablet PO ONE (23:15)
[2023-01-11] MEDS ORDERED: losartan 50mg tablet PO ONE (23:15)
[2023-01-11] MEDS ORDERED: clopidogrel 75mg tablet PO ONE (23:15)
[2023-01-11] MEDS ORDERED: magnesium 2GM in 50ml NS 50 ML IV PRN (23:20)
[2023-01-11] MEDS ORDERED: morphine 2 MG/ML inj. syringe IV PRN (23:20)
[2023-01-11] MEDS ORDERED: ondansetron/PF 4mg/2ml inj IV PRN (23:20)
[2023-01-11] MEDS ORDERED: magnesium 4gm in 100ml NS 100 ML IV PRN (23:20)
[2023-01-11] MEDS ORDERED: magnesium Cl slow-release 64mg tablet PO PRN (23:20)
[2023-01-11] MEDS ORDERED: potassium Cl 40MEQ/1/2NS 520ml 520 ML IV PRN (23:20)
[2023-01-11] MEDS ORDERED: potassium Cl 20 mEq SR tablet PO PRN ×2 (23:20)
[2023-01-11] MEDS ORDERED: HYDROcodone/acetaminophen 5mg/325mg tablet PO PRN (23:20)
[2023-01-11] MEDS ORDERED: acetaminophen 325mg tablet PO PRN ×2 (23:20)
[2023-01-11] MEDS ORDERED: POTA-207 PO (23:29)
[2023-01-11] MEDS ORDERED: HYDR-4070 PO (23:29)
[2023-01-11] MEDS ORDERED: NITR0.4T48 PO (23:29)
[2023-01-11] MEDS ORDERED: BUDE10.22 IH (23:29)
[2023-01-11] MEDS ORDERED: FURO40TA4 PO ×2 (23:29→23:32)
[2023-01-11] MEDS ORDERED: CARV-50 PO (23:29)
[2023-01-11] MEDS ORDERED: ISOS30TA84 PO (23:29)
[2023-01-11] MEDS ORDERED: POTA10CA45 PO (23:30)
[2023-01-11] MEDS ORDERED: LORazepam 0.5 MG tablet PO PRN (23:40)
[2023-01-11 23:50] LABS: ABG BASE EXCESS -2.1 mmol/L (-2.0-2.0); ABG HCO3 21.9 mmol/L (22.0-26.0); ABG PCO2 (T) 35.5 mmHg (32.0-45.0); ABG PO2 (T) 82.8 mmHg (75.0-100.0); FCOHb 0.8 % (0.0-3.9); FMetHb 0.3 % (0.0-1.5); FO2Hb 94.9 % (94-97); TOTAL HEMOGLOBIN 13.8 G/dl (12.0-16.0)
[2023-01-11] MEDS: albuterol 2.5 MG/3 ML nebule NEB SCH (23:52)
[2023-01-11] MEDS ORDERED: flecainide 50mg tablet ONE (23:52)
[2023-01-12] VITALS (7 sets, daily range): BP systolic 146–188; BP diastolic 49–96
[2023-01-12] MEDS ORDERED: flecainide 50mg tablet ONE (00:01)
--- NOTE | 2023-01-12 01:15 | NUR ---
Rec'd report from VITO Guy in the ER.
[2023-01-12] MEDS ORDERED: albuterol 2.5 MG/3 ML nebule NEB SCH (03:00)
[2023-01-12] MEDS: albuterol 2.5 MG/3 ML nebule NEB SCH (03:07)
--- NOTE | 2023-01-12 06:31 | NUR ---
Problems reprioritized. Patient report given, questions answered & plan of care reviewed with Joan/VITO Sherman.
[2023-01-12 07:10] LABS: BASOPHILS % (AUTO) 0.1 % (0-1); EOSINOPHILS % (AUTO) 0 % (0-6); HEMATOCRIT 35.9 % (35.0-45.0); HEMOGLOBIN 12.1 g/dl (12.0-16.0); LYMPHOCYTES # (AUTO) 0.6 X10'3 (1.1-4.8); LYMPHOCYTES % (AUTO) 6.8 % (21-51); MEAN CORPUSCULAR HGB CONC 33.7 g/dL (33.0-36.5); MEAN PLATELET VOLUME 7.5 FL (7.4-10.4); MONOCYTES # (AUTO) 0.1 X10'3 (0-0.9); MONOCYTES % (AUTO) 0.9 % (2-12); NEUTROPHILS # (AUTO) 7.5 X10'3 (1.8-7.7); NEUTROPHILS % (AUTO) 92.2 % (42-75); PLATELET COUNT 204 X10'3 (140-440); RED BLOOD COUNT 4.03 X10'6 (4.20-5.60); RED CELL DISTRIBUTION WIDTH 15.7 % (11.5-14.5); WHITE BLOOD COUNT 8.2 X10'3 (4.5-11.0)
[2023-01-12] MEDS: budesonide 0.5mg/2ml UD nebule IH SCH ×2 (07:12→20:11)
[2023-01-12] MEDS: albuterol 2.5 MG/3 ML nebule NEB PRN (07:12)
[2023-01-12 07:14] LABS: ALANINE AMINOTRANSFERASE 42 U/L (12-78); ALBUMIN 2.9 G/DL (3.4-5.0); ALBUMIN/GLOBULIN RATIO 0.9 (1.1-1.5); ALKALINE PHOSPHATASE 149 IU/L (46-116); ANION GAP 10 (8-16); ASPARTATE AMINO TRANSFERASE 36 U/L (10-37); BILIRUBIN,TOTAL 0.4 MG/DL (0.1-1.0); BLOOD UREA NITROGEN 32 MG/DL (7-18); BUN/CREATININE RATIO 27.4 (10.0-20.0); CHLORIDE 104 MMOL/L (99-107); CREATININE 1.17 MG/DL (0.40-0.90); GLUCOSE 125 MG/DL (70-104); POTASSIUM 3.7 MMOL/L (3.5-5.1); SODIUM 139 MMOL/L (135-145); TOTAL CARBON DIOXIDE 24.9 MMOL/L (24-32); TOTAL PROTEIN 6.1 G/DL (6.4-8.2); eGFR 44 ML/MIN
[2023-01-12] MEDS ORDERED: ezetimibe 10mg tablet PO SCH (08:00)
[2023-01-12] MEDS ORDERED: clopidogrel 75mg tablet PO SCH (08:00)
[2023-01-12] MEDS ORDERED: flecainide 50mg tablet PO SCH (08:00)
[2023-01-12] MEDS ORDERED: losartan 50mg tablet PO SCH (08:00)
[2023-01-12] MEDS: isosorbide mononitrate 30mg tab.SR.24H PO SCH (08:00)
[2023-01-12] MEDS ORDERED: carvedilol 6.25mg tablet PO SCH (08:00)
[2023-01-12] MEDS: ezetimibe 10mg tablet PO SCH (08:08)
[2023-01-12] MEDS: methylPREDNISolone sod succ/PF 40mg inj. IV SCH ×2 (08:22→20:44)
[2023-01-12] MEDS: furosemide 20 MG/2 ML vial IV SCH ×2 (08:22→20:44)
[2023-01-12] MEDS: losartan 50mg tablet PO SCH ×2 (08:23→20:44)
[2023-01-12] MEDS: carVEDilol 12.5mg tablet PO SCH ×2 (08:24→20:43)
[2023-01-12] MEDS: levoFLOXACIN-Levaquin 500mg/D5 100 ML IV SCH (08:24)
[2023-01-12] MEDS ORDERED: iohexol 350MG/ML 100ml bottle IV ONE (08:53)
--- NOTE | 2023-01-12 09:48 | NUR ---
Spoke to Pharmacist about Plavix. Given at 2348 last night and scheduled at 0800. I Held medication and notified physician who advised pharmacy consult for next dose. Pharmacist advised to give after 12 hours from last administation. Or, Noon.
[2023-01-12] MEDS: LORazepam 0.5 MG tablet PO PRN ×2 (10:44→20:43)
[2023-01-12] MEDS: aspirin 81mg tab.chew PO SCH (10:44)
--- NOTE | 2023-01-12 11:09 | NUR ---
Paged PICC nurse for help with established PIV for CT. 2 unsuccessful attempts made for PIV access.
[2023-01-12] MEDS: clopidogrel 75mg tablet PO SCH (11:49)
--- NOTE | 2023-01-12 18:00 | NUR ---
Patient in room PCU 3024. I have received report from Rani PADRON and had the opportunity to ask questions and assume patient care.
[2023-01-12] MEDS ORDERED: enoxaparin 40mg/0.4ml syringe SQ SCH (20:00)
[2023-01-13] MEDS: hydrALAZINE 25 MG tablet PO SCH ×3 (00:12→12:59)
--- NOTE | 2023-01-13 00:17 | NUR ---
patients blood pressure has been elevated 184/56 and 188/60. hydralizine is ordered on home medication list. patient states she does not have an allergy to hydrazine. took allegery off. per dr savage kent to order her home medication hydralizine 50mg QID
[2023-01-13 03:00] VITALS: BP 154/52
[2023-01-13 06:00] VITALS: BP 138/56
[2023-01-13 07:14] LABS: BASOPHILS % (AUTO) 0.1 % (0-1); EOSINOPHILS % (AUTO) 0 % (0-6); HEMOGLOBIN 11.1 g/dl (12.0-16.0); LYMPHOCYTES # (AUTO) 0.7 X10'3 (1.1-4.8); LYMPHOCYTES % (AUTO) 4.1 % (21-51); MEAN CORPUSCULAR HEMOGLOBIN 29.9 PG (27.0-31.0); MEAN CORPUSCULAR HGB CONC 33.7 g/dL (33.0-36.5); MEAN CORPUSCULAR VOLUME 88.5 FL (78-98); MEAN PLATELET VOLUME 7.5 FL (7.4-10.4); MONOCYTES # (AUTO) 0.9 X10'3 (0-0.9); MONOCYTES % (AUTO) 5.5 % (2-12); NEUTROPHILS # (AUTO) 14.4 X10'3 (1.8-7.7); NEUTROPHILS % (AUTO) 90.3 % (42-75); PLATELET COUNT 219 X10'3 (140-440); RED BLOOD COUNT 3.72 X10'6 (4.20-5.60); RED CELL DISTRIBUTION WIDTH 15.7 % (11.5-14.5); WHITE BLOOD COUNT 15.9 X10'3 (4.5-11.0)
[2023-01-13 07:28] LABS: ALANINE AMINOTRANSFERASE 32 U/L (12-78); ALBUMIN 2.7 G/DL (3.4-5.0); ALKALINE PHOSPHATASE 120 IU/L (46-116); ANION GAP 10 (8-16); ASPARTATE AMINO TRANSFERASE 24 U/L (10-37); BILIRUBIN,TOTAL 0.3 MG/DL (0.1-1.0); BLOOD UREA NITROGEN 38 MG/DL (7-18); CHLORIDE 103 MMOL/L (99-107); CREATININE 1.41 MG/DL (0.40-0.90); GLUCOSE 116 MG/DL (70-104); POTASSIUM 3.8 MMOL/L (3.5-5.1); SODIUM 141 MMOL/L (135-145); TOTAL PROTEIN 5.5 G/DL (6.4-8.2); eGFR 35 ML/MIN
[2023-01-13] MEDS: budesonide 0.5mg/2ml UD nebule IH SCH (07:59)
[2023-01-13] MEDS: albuterol 2.5 MG/3 ML nebule NEB PRN (07:59)
[2023-01-13] MEDS: isosorbide mononitrate 30mg tab.SR.24H PO SCH (08:00)
[2023-01-13] MEDS ORDERED: flecainide 50mg tablet PO SCH (08:50)
[2023-01-13] MEDS: ezetimibe 10mg tablet PO SCH (09:00)
[2023-01-13] MEDS: methylPREDNISolone sod succ/PF 40mg inj. IV SCH (09:00)
[2023-01-13] MEDS: levoFLOXACIN-Levaquin 500mg/D5 100 ML IV SCH (09:00)
[2023-01-13] MEDS: furosemide 20 MG/2 ML vial IV SCH (09:00)
[2023-01-13] MEDS: carVEDilol 12.5mg tablet PO SCH (09:01)
[2023-01-13] MEDS: losartan 50mg tablet PO SCH (09:01)
[2023-01-13] MEDS: aspirin 81mg tab.chew PO SCH (09:02)
[2023-01-13] MEDS: clopidogrel 75mg tablet PO SCH (09:02)
[2023-01-13 12:30] VITALS: BP 145/58
[2023-01-13] MEDS ORDERED: ondansetron 4mg rapidly disintigrating tab PO PRN (12:35)
[2023-01-13 12:59] VITALS: BP_SYST 145
[2023-01-13] MEDS ORDERED: TAM50T PO (13:46)
[2023-01-13] MEDS ORDERED: levoFLOXACIN-Levaquin 250mg/D5 50 ML IV SCH (16:00)
--- NOTE | 2023-01-13 16:29 | NUR ---
Pt stable for discharge per Dr. Lagos. All discharge instructions reviewed with patient and all questions answered, pt verbalized understanding. New medications e-scripted to [employer]. PIV discontinued, cannula intact. Tele discontinued. All belongings collected and sent with patient. Wheeled to lobby via nursing staff and picked up by spouse.
[2023-01-14] MEDS ORDERED: furosemide 20 MG/2 ML vial IV SCH (08:00)
== END 2023-01-13 15:36 | disposition home health service (06) | DRG 190 ==
LOC: ER 17:31 → ED HOLD 23:20 → PCU 3S 01-12 01:36
PROVIDERS: ADMIT Internal Medicine; ATTEND Internal Medicine
PROC: 5A09357 Assistance with Respiratory Ventilation, Less than 24 Consecutive Hours, Continuous Positive Airway Pressure (ICD-10-PCS; principal; 2023-01-11)
PROC: B32T1ZZ Computerized Tomography (CT Scan) of Left Pulmonary Artery using Low Osmolar Contrast (ICD-10-PCS; 2023-01-12)
PROC: B3201ZZ Computerized Tomography (CT Scan) of Thoracic Aorta using Low Osmolar Contrast (ICD-10-PCS; 2023-01-12)
PROC: B32S1ZZ Computerized Tomography (CT Scan) of Right Pulmonary Artery using Low Osmolar Contrast (ICD-10-PCS; 2023-01-12)
DX: J44.1 Chronic obstructive pulmonary disease with (acute) exacerbation (principal); I50.33 Acute on chronic diastolic (congestive) heart failure; I11.0 Hypertensive heart disease with heart failure; Z66 Do not resuscitate; I16.0 Hypertensive urgency; F41.9 Anxiety disorder, unspecified; I73.9 Peripheral vascular disease, unspecified; E03.9 Hypothyroidism, unspecified; E78.5 Hyperlipidemia, unspecified; I48.0 Paroxysmal atrial fibrillation; Z79.51 Long term (current) use of inhaled steroids; Z85.118 Personal history of other malignant neoplasm of bronchus and lung; Z88.1 Allergy status to other antibiotic agents; Z88.8 Allergy status to other drugs, medicaments and biological substances; Z79.899 Other long term (current) drug therapy; Z84.89 Family history of other specified conditions; Z95.0 Presence of cardiac pacemaker
CPT/HCPCS: 36410; 36415; 36600; 71045; 71275; 76937; 80053; 82803; 83605; 83880; 84484; 85018; 85025; 85379; 85610; 85730; 87040; 87081; 87502; 87503; 93306; 94640; 94660; 94760; 97116; 97161; 97530; 99285; A4615; A4620; C1751; G0378; J1644; J1940; J1956; J2250; J2920; J2930; J3010; J3490; J7040; Q9967

== ENCOUNTER 2023-04-06 10:14 | Emergency (ER) | payer MEDICARE ==
[~2023-04-06] VITALS: Ht 157.5 cm; Wt 65.4 kg
[~2023-04-06 10:14] MED LIST changes: -AREDS PO; +ASPI81TA52 PO; +BUDE10.22 IH; +CARV-49 PO; -CARV6.256 PO; -CHOL100062 PO; +ERGO400C PO; -EVOL140P3 SQ; +EVOL140P3 SUBCUT; -FLEC50TA PO; +FURO-150 PO; +HYDR-4070 PO; +NITR0.4T48 PO; +NITR0.4T51 SL; +POTA-207 PO; +POTA10CA85 PO; +TAM50T PO; +VIT1CAPS46 PO; +calcium chloride 100 MG/1 ML inj IV ONE; +epiNEPHrine 0.1mg/ml 10ml syringe ONE; +sodium bicarbonate (8.4%) 1 mEq/ml syringe ONE
[2023-04-06] MEDS ORDERED: normal saline 1000ml 1,000 ML IV ONE (10:20)
[2023-04-06] MEDS ORDERED: CefTRIAXone/D5W-Rocephin 1gm 50 ML IV ONE (10:20)
[2023-04-06] MEDS ORDERED: calcium chloride 100 MG/1 ML inj IV ONE (10:20)
[2023-04-06] MEDS ORDERED: epiNEPHrine inj 5 MG in normal saline 250ml IV soln 245 ML IV PRN (10:40)
[2023-04-06 10:47] LABS: BASOPHILS % (AUTO) 0.4 % (0-1); EOSINOPHILS # (AUTO) 0.1 X10'3 (0-0.9); EOSINOPHILS % (AUTO) 1.2 % (0-6); HEMATOCRIT 25.8 % (35.0-45.0); HEMOGLOBIN 7.9 g/dl (12.0-16.0); LYMPHOCYTES # (AUTO) 0.7 X10'3 (1.1-4.8); LYMPHOCYTES % (AUTO) 6.1 % (21-51); MEAN CORPUSCULAR HEMOGLOBIN 30.9 PG (27.0-31.0); MEAN CORPUSCULAR HGB CONC 30.6 g/dL (33.0-36.5); MEAN PLATELET VOLUME 8.5 FL (7.4-10.4); MONOCYTES # (AUTO) 0.8 X10'3 (0-0.9); MONOCYTES % (AUTO) 6.6 % (2-12); NEUTROPHILS # (AUTO) 10.5 X10'3 (1.8-7.7); NEUTROPHILS % (AUTO) 85.7 % (42-75); PLATELET COUNT 119 X10'3 (140-440); RED BLOOD COUNT 2.56 X10'6 (4.20-5.60); RED CELL DISTRIBUTION WIDTH 19.9 % (11.5-14.5); WHITE BLOOD COUNT 12.2 X10'3 (4.5-11.0)
--- NOTE | 2023-04-06 10:50 | NUR ---
UNABLE TO OBTAIN GENERAL ASSESSMENT OTHER THAN WHAT WAS DOCUMENTED IN TRIAGE DUE CPR STARTED AND IN PROGRESS. PT. OBTAINED ROSC AFTER ACLS MEDS AND CPR PERFORMED. FAMILY ARRIVED AFTER ROSC WAS OBTAINED AND STATED THEY DID NOT WANT ANY CPR PERFORMED ON THE PATIENT. PT. WAS PRONOUNCED BY DR. ROLLE @ [id number].
[2023-04-06 10:54] VITALS: BP 106/77; PULSE 61; RESP 18; O2SAT 100
[2023-04-06 11:01] LABS: ALANINE AMINOTRANSFERASE 41 U/L (12-78); ALBUMIN 2.5 G/DL (3.4-5.0); ALKALINE PHOSPHATASE 220 IU/L (46-116); ANION GAP 15 (8-16); ASPARTATE AMINO TRANSFERASE 16 U/L (10-37); BILIRUBIN,TOTAL 0.6 MG/DL (0.1-1.0); BLOOD UREA NITROGEN 118 MG/DL (7-18); BUN/CREATININE RATIO 33.1 (10.0-20.0); CHLORIDE 95 MMOL/L (99-107); CREATININE 3.56 MG/DL (0.40-0.90); GLUCOSE 146 MG/DL (70-104); MAGNESIUM 2.9 MG/DL (1.5-2.4); SODIUM 133 MMOL/L (135-145); TOTAL CARBON DIOXIDE 23.5 MMOL/L (24-32); TOTAL PROTEIN 5.1 G/DL (6.4-8.2); eGFR 12 ML/MIN
[2023-04-06 11:07] LABS: POTASSIUM 6.4 MMOL/L (3.5-5.1)
[2023-04-06 11:28] LABS: PLATELET ESTIMATE DECREASED
[2023-04-06 11:29] LABS: ANISOCYTOSIS 2+
[2023-04-06 11:31] LABS: BURR CELLS FEW; ELLIPTOCYTES FEW
--- NOTE | 2023-04-06 11:58 | NUR ---
FAMILY REMAINS AT BEDSIDE. COMFORT CART PROVIDED.
--- NOTE | 2023-04-06 12:12 | NUR ---
CALLED [facility], NO ANSWER AND NO MESSAGE MACHINE TO LEAVE MESSAGE.
--- NOTE | 2023-04-06 12:28 | NUR ---
CALLED [facility], NO ANSWER AND NO MESSAGE MACHINE TO LEAVE MESSAGE.
--- NOTE | 2023-04-06 13:08 | NUR ---
CALLED [facility] IN [place]. THEY ARE GOING TO CONTACT [facility] AND ALERT THEM OF OUR NEEDS.
== END 2023-04-06 16:40 ==
LOC: ER 10:15
DX: I46.9 Cardiac arrest, cause unspecified (principal); N17.9 Acute kidney failure, unspecified; N18.9 Chronic kidney disease, unspecified; Z88.5 Allergy status to narcotic agent; Z88.1 Allergy status to other antibiotic agents; Z88.8 Allergy status to other drugs, medicaments and biological substances; Z79.899 Other long term (current) drug therapy; Z79.82 Long term (current) use of aspirin
CPT/HCPCS: 36415; 71045; 80053; 82948; 83605; 83735; 84145; 84484; 85008; 85025; 92950; 93005; 96365; 99291; J0171; J0696; J3490; J7050; 31500; 94002; 94760